=== PATIENT | male | born 1990 | race Caucasian/White ===

== ENCOUNTER 2016-09-15 08:34 | Emergency (ER) | payer MEDICAID, OTHER ==
[~2016-09-15] VITALS: Ht 152.4 cm; Wt 45.4 kg
[2016-09-15 08:44] VITALS: BP 0/0
[2016-09-15] MEDS ORDERED: EPINEPHrine HCL 1 MG/10 ML SYRG IV ONE (17:12)
== END 2016-09-15 13:07 | disposition expired ==
LOC: EDUNIT# 08:38 → EDBD 08:38 → ER 08:38
DX: I46.9 Cardiac arrest, cause unspecified (principal); S01.80XA Unspecified open wound of other part of head, initial encounter; S21.102A Unspecified open wound of left front wall of thorax without penetration into thoracic cavity, initial encounter; S41.101A Unspecified open wound of right upper arm, initial encounter; W32.0XXA Accidental handgun discharge, initial encounter; Y93.89 Activity, other specified; Y99.8 Other external cause status; Y92.89 Other specified places as the place of occurrence of the external cause
CPT/HCPCS: 31500; 92950; 99285; J0171